=== PATIENT | male | born 1995 | race African-American/Black ===

== ENCOUNTER 2018-01-23 16:49 | Emergency (ER) | payer MEDICAID ==
[~2018-01-23] VITALS: Ht 180.3 cm; Wt 105.2 kg
[2018-01-23 16:55] VITALS: BP 128/79; Ht 180.3 cm; Wt 105.2 kg
== END 2018-01-23 19:09 | disposition home or self-care (01) ==
LOC: ED 16:49
DX: S61.216A Laceration without foreign body of right little finger without damage to nail, initial encounter (principal); W26.8XXA Contact with other sharp object(s), not elsewhere classified, initial encounter; Y93.89 Activity, other specified; Y92.89 Other specified places as the place of occurrence of the external cause; Y99.8 Other external cause status
CPT/HCPCS: 90715

== ENCOUNTER 2018-01-25 13:47 | Emergency (ER) | payer MEDICAID ==
[~2018-01-25] VITALS: Ht 180.3 cm; Wt 104.3 kg
[2018-01-25 13:56] VITALS: BP 140/99; Ht 180.3 cm; Wt 104.3 kg
== END 2018-01-25 15:05 | disposition home or self-care (01) ==
LOC: ED 13:47
DX: S61.214D Laceration without foreign body of right ring finger without damage to nail, subsequent encounter (principal); S61.216D Laceration without foreign body of right little finger without damage to nail, subsequent encounter; W26.0XXD Contact with knife, subsequent encounter

== ENCOUNTER 2018-02-02 09:10 | Emergency (ER) | payer MEDICAID ==
[~2018-02-02] VITALS: Ht 180.3 cm; Wt 106.6 kg
[2018-02-02 09:19] VITALS: Ht 180.3 cm; Wt 106.6 kg
[2018-02-02 09:50] VITALS: BP 133/97
== END 2018-02-02 09:50 | disposition home or self-care (01) ==
LOC: ED 09:10
DX: S61.214D Laceration without foreign body of right ring finger without damage to nail, subsequent encounter (principal); S61.216D Laceration without foreign body of right little finger without damage to nail, subsequent encounter; X58.XXXD Exposure to other specified factors, subsequent encounter

== ENCOUNTER 2018-06-28 03:07 | Emergency (ER) | payer MEDICAID ==
[~2018-06-28] VITALS: Ht 180.3 cm; Wt 68.9 kg
[2018-06-28 03:10] VITALS: Ht 180.3 cm; Wt 68.9 kg
[2018-06-28 04:18] VITALS: BP 149/90
== END 2018-06-28 04:18 | disposition home or self-care (01) ==
LOC: ED 03:07
DX: T16.1XXA Foreign body in right ear, initial encounter (principal); H60.11 Cellulitis of right external ear; W22.8XXA Striking against or struck by other objects, initial encounter; Y93.89 Activity, other specified; Y92.89 Other specified places as the place of occurrence of the external cause; Y99.8 Other external cause status

== ENCOUNTER 2019-01-13 09:43 | Emergency (ER) | payer MEDICAID ==
[~2019-01-13] VITALS: Ht 180.3 cm; Wt 112.5 kg
[2019-01-13 09:46] VITALS: Ht 180.3 cm; Wt 112.5 kg
[2019-01-13 10:50] VITALS: BP 140/94
== END 2019-01-13 10:50 | disposition home or self-care (01) ==
LOC: ED 09:43
DX: M22.2X1 Patellofemoral disorders, right knee (principal); R03.0 Elevated blood-pressure reading, without diagnosis of hypertension; X58.XXXA Exposure to other specified factors, initial encounter; Y93.84 Activity, sleeping; Y92.89 Other specified places as the place of occurrence of the external cause; Y99.8 Other external cause status
CPT/HCPCS: J1885; Q0092